=== PATIENT | female | born 1970 | race American Indian/Alaskan Native ===

== ENCOUNTER 2021-01-06 12:48 | Emergency (ER) | payer SELFPAY ==
[2021-01-06 14:07] VITALS: BP 136/105
[2021-01-06] MEDS ORDERED: IBUPROFEN 600 MG TAB PO ONE (14:09)
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
--- NOTE | 2021-01-06 15:01 | XRay Report ---
LEFT RIBS 5 VIEWS INDICATION / CLINICAL INFORMATION: left posterior rib pain. COMPARISON: None available. FINDINGS: RIBS: No acute, displaced fracture or other acute abnormality. LUNGS: No acute findings. No pneumothorax. Signer Name: Bc Salinas MD Signed: 01/06/2021 2:57 PM Workstation Name: [id number]
--- NOTE | 2021-01-06 15:07 | XRay Report ---
Right SHOULDER 3 VIEW(S) INDICATION / CLINICAL INFORMATION: shoulder pain/fall COMPARISON: None available. FINDINGS: BONES / JOINT(S): No acute fracture or subluxation. Moderate glenohumeral osteoarthrosis with inferom edial osteophyte of humeral head. SOFT TISSUES: No significant abnormality. ADDITIONAL FINDINGS: None. Signer Name: Bc Salinas MD Signed: 01/06/2021 3:03 PM Workstation Name: [id number]
--- NOTE | 2021-01-06 15:09 | XRay Report ---
RIGHT FOOT 3 VIEW(S) INDICATION / CLINICAL INFORMATION: fall/pain COMPARISON: None available. FINDINGS: BONES / JOINT(S): Nondisplaced, comminuted fracture of the distal phalanx of the great toe. There is intra-articular extension into the interphalangeal joint. No other acute osseous injury is identified . No significant arthritis. SOFT TISSUES: No significant abnormality. ADDITIONAL FINDINGS: None. Signer Name: Bc Salinas MD Signed: 01/06/2021 3:04 PM Workstation Name: [id number]
== END 2021-01-06 15:49 | disposition home or self-care (01) ==
LOC: ED 12:48
DX: S92.911A Unspecified fracture of right toe(s), initial encounter for closed fracture (principal); S20.212A Contusion of left front wall of thorax, initial encounter; M25.519 Pain in unspecified shoulder; M19.011 Primary osteoarthritis, right shoulder; Z88.5 Allergy status to narcotic agent; X58.XXXA Exposure to other specified factors, initial encounter; Y93.89 Activity, other specified; Y92.89 Other specified places as the place of occurrence of the external cause; Y99.8 Other external cause status
CPT/HCPCS: 99283